=== PATIENT | female | born 1995 | race Caucasian/White ===

== ENCOUNTER 2017-12-14 07:49 | Inpatient (IN) | payer OTHER ==
[~2017-12-14] VITALS: Ht 165.1 cm; Wt 145.5 kg
[~2017-12-14 07:49] MED LIST: ACET-1311 PO; FLVHFA110 INH; MTR600X PO; PRENTAB14 PO
[2017-12-14] MEDS ORDERED: LACTATED RINGER'S 1000ML 1,000 ML IV PRN (08:00)
[2017-12-14] MEDS ORDERED: DINOPROSTONE 10 MG INSERT PV ONE (08:00)
[2017-12-14 08:24] LABS: HEMATOCRIT 35.7 % (37-47); HEMOGLOBIN 11.7 g/dL (12.0-16.0); MEAN CELL VOLUME 83.6 fL (80-100); MEAN CORPUSCULAR HEMOGLOBIN 27.4 pg (25-34); MEAN CORPUSCULAR HGB CONC 32.8 g/dl (32-36); MEAN PLATELET VOLUME 9.8 fL (7.4-10.4); PLATELET COUNT 277 K/uL (130-400); RED CELL DISTRIBUTION WIDTH CV 16.1 % (11.5-14.5); RED CELL DISTRIBUTION WIDTH SD 48.5 fL (36.4-46.3); WHITE BLOOD COUNT 13.55 K/uL (4.8-10.8)
[2017-12-14] MEDS ORDERED: LACTATED RINGER'S 1000ML 500 ML IV PRN ×2 (08:29→15:27)
[2017-12-14] MEDS ORDERED: ONDANSETRON INJ 2 MG/ML 2 ML VIAL IV PRN ×2 (08:30→15:30)
[2017-12-14] MEDS ORDERED: OXYTOCIN 30 UNITS/500ML NSS IV PRN ×2 (08:30→16:30)
[2017-12-14] MEDS ORDERED: CALCIUM CARBONATE 500 MG CHEWABLE PO PRN (08:30)
[2017-12-14 11:27] VITALS: Ht 165.1 cm; Wt 145.5 kg
[2017-12-14] MEDS: LACTATED RINGER'S 1000ML 1,000 ML IV SCH ×2 (12:17→14:00)
[2017-12-14] MEDS ORDERED: EpHEDrine SULFATE INJ 50 MG/ML AMP ONE (13:03)
[2017-12-14] MEDS ORDERED: BUPIVACAINE 0.25% 30 ML VIAL ONE (13:03)
[2017-12-14] MEDS ORDERED: FENTANYL CITRATE INJ 50 MCG/1 ML 2 ML VIAL ONE (13:04)
[2017-12-14] MEDS ORDERED: FENTANYL 2MCG/ML ROPIV 1.25MG/ML 100ML BAG EPI ONE (13:04)
[2017-12-14] MEDS ORDERED: NALOXONE HCL INJ 1 MG in SODIUM CHLORIDE 0.9% 1000ML 1,000 ML IV PRN (15:27)
[2017-12-14] MEDS ORDERED: NALOXONE HCL INJ 0.4 MG/1 ML VIAL/CARP IV PRN (15:30)
[2017-12-14] MEDS ORDERED: DiphenhydrAMINE HCL 50 MG/ML VIAL IV PRN (15:30)
[2017-12-14] MEDS ORDERED: EpHEDrine SULFATE INJ 50 MG/ML AMP IV PRN (15:30)
[2017-12-14] MEDS ORDERED: FENTANYL 2MCG/ML ROPIV 1.25MG/ML 100ML BAG EPI PRN (15:30)
[2017-12-14] MEDS ORDERED: PROMETHAZINE HCL INJ 6.25 MG in SODIUM CHLORIDE 0.9% 50ML 50 ML IV PRN (15:30)
[2017-12-14] MEDS ORDERED: NALBUPHINE HCL INJ 10 MG/ML AMP IV PRN (15:30)
[2017-12-14] MEDS ORDERED: LACTATED RINGER'S 1000ML 1,000 ML IV SCH (16:22)
[2017-12-14] MEDS ORDERED: OXYCODONE/ACETAMINOPHEN 5-325 TAB PO PRN (16:30)
[2017-12-14] MEDS ORDERED: LANOLIN OINT EXT PRN (16:30)
[2017-12-14] MEDS ORDERED: HYDROCORTISONE ACETATE 25 MG SUPP PR PRN (16:30)
[2017-12-14] MEDS ORDERED: BENZOCAINE 20% AER SPR 82.5 GM CAN EXT PRN (16:30)
[2017-12-14] MEDS ORDERED: DIPHTHERIA/TETANUS/PERTUSSIS 0.5 ML SYR/VIAL IM. ONE (16:30)
[2017-12-14] MEDS ORDERED: MEASLES, MUMPS & RUBELLA VIRUS VIAL SQ. ONE (16:30)
[2017-12-14] MEDS ORDERED: SUPERCREAM 0.870 % 15GM JAR EXT PRN (16:30)
[2017-12-14] MEDS ORDERED: CEFAZOLIN 3000MG IV PUSH 22.5 ML IV ONE (17:00)
--- NOTE | 2017-12-14 18:05 | DELIVERY SUMMARY ---
DATE OF OPERATION: 12/14/2017 TIME OF DELIVERY OF BABY: 15:59 p.m. TIME OF DELIVERY OF PLACENTA: 16:07 p.m. OPERATIVE PROCEDURE: Spontaneous vaginal delivery, repair of first degree perineal laceration and curettage at bedside for retained membranes. DESCRIPTION OF PROCEDURE: The patient was found to be fully dilated and desired to push. She pushed only once delivered the head through an intact perineum. Shoulders were delivered with minimal traction. Baby was handed to the mother, where mouth and nose were suctioned. Cord was clamped x2 and cut at 1 minute delay and then cord blood was obtained. It was a 3-vessel cord. Perineum and vagina were checked for lacerations. There was a small first degree perineal laceration, which was repaired with 3-0 Vicryl in a SH needle. Excellent hemostasis was achieved. The rest of the vagina and perineum were intact. The placenta was found to be in the vagina, delivered spontaneously intact and complete. The uterus was explored and found to be having some membranes. Some of those were retrieved manually and then with the help of Boom curette the rest of the membranes were retrieved with gentle curettings. Then the uterine cavity / the endometrium was felt to be empty. Fundus was firm. EBL was 200. Mom and baby tolerated the procedure well. Sponge, lap and instrument counts were correct x2. Baby was a viable male infant. Apgars 8/9, weight is 3620 gr, 8 lb. No complications happened and I was present during whole procedure. The patient will be given cefazolin at the end of the procedure. I attest to the content of the Intraoperative Record and any orders documented therein. Any exceptions are noted below. MTDD
[2017-12-14 19:20] VITALS: BP 106/62; PULSE 82; TEMP 36.5
[2017-12-14] MEDS: DOCUSATE SODIUM 100 MG CAP PO SCH (19:30)
--- NOTE | 2017-12-14 21:23 | Anesthesia Procedure Note ---
Anesthesia Epidural Removal Nt Date & Time Dec 14, 2017 at 21:23 Vital Signs Pain Intensity: 0.0 Vital Signs Past 12 Hours Date Time Temp Pulse Resp B/P (MAP) Pulse Ox O2 Delivery O2 Flow Rate FiO2 12/14/17 19:20 Room Air 12/14/17 19:20 36.5 82 20 106/62 (77) Room Air Notes Mental Status: alert / awake / arousable, participated in evaluation Nausea / Vomiting: adequately controlled Pain: adequately controlled Airway Patency, RR, SpO2: stable & adequate BP & HR: stable & adequate Hydration State: stable & adequate Neuraxial Anesthesia: was administered Anesthetic Complications: no major complications apparent, pt satisfied with anesthetic care Epidural: removed without complications, with tip intact
[2017-12-14 23:45] VITALS: BP 112/70; PULSE 76; TEMP 36.4
[2017-12-15] MEDS: ACETAMINOPHEN 325 MG TAB PO PRN ×3 (00:45→19:50)
[2017-12-15 04:00] VITALS: BP 121/70; PULSE 66; TEMP 36.8
[2017-12-15] MEDS: DOCUSATE SODIUM 100 MG CAP PO SCH ×2 (07:36→19:50)
[2017-12-15] MEDS: PRENATAL VITAMIN TAB PO SCH (07:36)
[2017-12-15] MEDS: FERROUS SULFATE 325 MG TAB PO SCH (07:36)
[2017-12-15 07:45] VITALS: BP 127/83; PULSE 86; TEMP 36.4; O2SAT 97
[2017-12-15 08:14] LABS: HEMATOCRIT 34.6 % (37-47)
--- NOTE | 2017-12-15 08:28 | OB/GYN Progress Note ---
H[employer]ELOPER Progress Note Date of Service Dec 15, 2017. Subjective conversation w/ patient, physical exam Ambulation: ambulating normally Voiding: no voiding problems Passing Gas: Yes Diet Tolerance: Regular Diet Lochia: Moderate Feeding Type: Breast Feeding Review of Systems Constitutional: No fever, No chills, No sweats, No weight loss, No weakness, No fatigue, No problem reported Respiratory: No cough, No sputum, No wheezing, No shortness of breath, No dyspnea on exertion, No dyspnea at rest, No hemoptysis, No problem reported Cardiac: No chest pain, No orthopnea, No PND, No edema, No claudication, No palpitations, No problem reported Breast: No see HPI, No breast lump, No change in shape, No nipple discharge, No breast pain, No problem reported Abdomen: No pain, No nausea, No vomiting, No diarrhea, No constipation, No GI bleeding, No problem reported Female : No see HPI, No dysuria, No urinary frequency, No hematuria, No incontinence, No abnormal vaginal bleeding, No vaginal discharge, No problem reported Objective Vital Signs Date Time Temp Pulse Resp B/P (MAP) Pulse Ox O2 Delivery O2 Flow Rate FiO2 12/15/17 04:00 36.8 66 18 121/70 (87) Room Air 12/14/17 23:45 Room Air 12/14/17 23:45 36.4 76 22 112/70 (84) Room Air 12/14/17 19:20 Room Air 12/14/17 19:20 36.5 82 20 106/62 (77) Room Air Physical Exam General Appearance: WELL-APPEARING, WD/WN Respiratory/Chest: chest non-tender, lungs clear, normal breath sounds Cardiovascular: regular rate, rhythm, no edema, no gallop Abdomen: normal bowel sounds, non tender, soft Fundus: Firm Extremities: normal range of motion, non-tender, normal inspection Laboratory Results Last 24 Hours Test 12/15/17 07:22 Hemoglobin 11.0 g/dL Hematocrit 34.6 % Assessment and Plan Day Number: 1 Continue Routine Care: VD day #1 Pt doing well anticipate disch tomorrow
[2017-12-15 11:40] VITALS: BP 112/77; PULSE 64; TEMP 36.9; O2SAT 97
[2017-12-15] MEDS: IBUPROFEN 600 MG TAB PO PRN (12:35)
[2017-12-15 16:05] VITALS: BP 109/65; PULSE 75; TEMP 36.4
[2017-12-15] MEDS ORDERED: BISACODYL 5 MG TABEC PO SCH (20:00)
[2017-12-15 23:30] VITALS: BP 114/72; PULSE 76; TEMP 37
[2017-12-16] MEDS: IBUPROFEN 600 MG TAB PO PRN ×2 (04:29→10:53)
[2017-12-16 06:35] LABS: HEMATOCRIT 33.9 % (37-47); HEMOGLOBIN 11.1 g/dL (12.0-16.0); MEAN CELL VOLUME 84.3 fL (80-100); MEAN CORPUSCULAR HEMOGLOBIN 27.6 pg (25-34); MEAN CORPUSCULAR HGB CONC 32.7 g/dl (32-36); MEAN PLATELET VOLUME 10.2 fL (7.4-10.4); PLATELET COUNT 269 K/uL (130-400); RED CELL DISTRIBUTION WIDTH CV 16.1 % (11.5-14.5); RED CELL DISTRIBUTION WIDTH SD 49.4 fL (36.4-46.3); WHITE BLOOD COUNT 14.03 K/uL (4.8-10.8)
[2017-12-16] MEDS ORDERED: BISACODYL 10 MG SUPP PR PRN (07:00)
[2017-12-16 08:00] VITALS: BP 141/80; PULSE 67; TEMP 36.3
[2017-12-16] MEDS: FERROUS SULFATE 325 MG TAB PO SCH (08:21)
[2017-12-16] MEDS: PRENATAL VITAMIN TAB PO SCH (08:21)
[2017-12-16] MEDS: DOCUSATE SODIUM 100 MG CAP PO SCH (08:26)
[2017-12-16] MEDS ORDERED: MTR600X PO (09:33)
--- NOTE | 2017-12-16 09:34 | Discharge Instructions ---
Discharge Instructions Date of Service Dec 16, 2017. Admission Reason for Admission: Induction Discharge Discharge Diagnosis / Problem: term delivered Discharge Goals Goal(s): Routine recovery after delivery Activity Recommendations Activity Limitations: as noted below Lifting Limitations: no more than 10 pounds Exercise/Sports Limitations: gradually increase as tolerated May Resume Sexual Activity: after follow-up appointment Shower/Bathe: no limitations Driving or Machine Use: resume 3 days after discharge . Instructions / Follow-Up Instructions / Follow-Up ACTIVITY RECOMMENDATIONS: * Gradual return to full activity over the next 2-3 weeks. * No lifting - nothing heavier than baby over the next 2-3 weeks. * Do not engage in vigorous exercise, sexual activity or sports until cleared by your physician. * Do not drive or operate any motorized equipment until cleared by your physician. * You may shower/bathe daily. BREAST CARE: If you are not breast feeding: * Wear a supportive bra 24 hours a day for one to two weeks. * Avoid stimulating your breasts and nipples as much as possible during the first few weeks after delivery. * When taking a shower, have the warm water hit your back, not breasts. * When your breasts feel full, apply ice packs. Usually three to four times a day helps ease the discomfort. * Take a mild pain medication (Tylenol/Motrin) when you are uncomfortable. If breast feeding: * Use breast milk to lubricate nipples. Lansinoh cream may be used for sore nipples. You do not need to remove cream prior to breast feeding. If using a different brand of cream, check the label for directions regarding removal of cream prior to nursing. * Wear a supportive bra. * If having problems with breasts or breast feeding, call a client service consultant or your health care provider. EPISIOTOMY CARE: After delivery, if you have an episiotomy (stitches), the following steps will ease discomfort and aid healing. * For the first 24 hours after delivery, place ice packs next to your episiotomy to help reduce swelling. * After the first 24 hour-period, sitz baths, either portable or in the tub, are suggested. A shower with a shower arm sprayed over the episiotomy may be comforting. * Nila care should be done after each voiding and bowel movement. Squirt warm water from a plastic bottle over the perineum (region of the body between the anus and urinary opening) and pat dry. * Use Dermoplast to ease discomfort. Shake container. [place] directly over the episiotomy. * Place a Tucks on a clean sanitary pad next to your episiotomy. OVER THE COUNTER MEDICATION: * For discomfort or pain, you may use Acetaminophen (Tylenol), Ibuprofen (Advil ), or Naproxen (Aleve) following the package directions. * For constipation you may use Colace following the package directions. SPECIAL CARE INSTRUCTIONS: When you are discharged from the hospital, it is important for you to follow the instructions listed below: * During the first week at home, you should be able to care for yourself and your baby. In addition, the usual light household activities are encouraged. * Limit your activities to the way you feel. Do not try to clean the house or move furniture. Be sensible. * If you actively engage in sports and have done so up until the time of your delivery, you may resume these activities as soon as you feel able. This may take up to one month or even longer. Use good judgment. * Continue to take your vitamins for at least six weeks after the of your baby. * Your diet need not be limited unless you were on a special diet before your delivery. Breast-feeding mothers need around 2500 calories per day and at least 64-80 ounces of fluid per day (8 to 10 glasses). * You should eat foods from the four major food groups. Crash diets or fad diets are to be avoided. Eating lean meats, fresh fruits and vegetables, low-fat dairy products, high fiber foods and a regular exercise program, will help you get back to your pre- weight without putting your health at risk. * Constipation is sometimes a problem after delivery. Take a mild laxative as needed. If breast feeding, Milk of Magnesia is acceptable to use. You may use a suppository or Fleets enema if no episiotomy. * A daily shower or tub bath is suggested. Be sure to thoroughly and gently dry the perineum. * A bloody vaginal discharge will usually continue until around four weeks post . A small amount of bleeding may continue for as long as six weeks. Vaginal discharge changes from the bright red bleeding after delivery to pink then brownish and finally yellowish-pink before becoming white and disappearing. * Bleeding may increase with activity. Your first period may come in 4-8 weeks. If you are breast feeding, your period may be delayed even longer. * [place]ell (sex) can begin whenever both you and your partner feel comfortable and do not have any form of genital infection. It is recommended that you wait until after your return appointment and discuss with your physician. If you have questions, please talk to your health care practitioner. A condom should be used to prevent infection and . * Foreplay, gentle intercourse and lubrication is very important the first several times to prevent pain. A water-based lubricant such as K-Y jelly or Astroglide may be used. * Tampons may be used six weeks after delivery. * Douching should be avoided for 6 weeks after delivery. * If you have RH negative blood and your baby is RH positive, you will receive RHOGAM by injection prior to discharge. The nurse will give you a card to keep with you that has the date and place that you received RHOGAM after delivery. * During your care, you had a Rubella screen done to check for the presence of rubella antibodies in your blood. If your test was negative, you will receive a Rubella vaccine prior to discharge. This vaccine may cause a fever, soreness at the injection site and flu-like symptoms. If these symptoms persist, notify your health care practitioner. is not advised for three months after a Rubella vaccine. There is a higher chance of having a baby with defects if conceived within three months of getting the vaccine. * If you were discharged 24 hours from delivery or before 48 hours: Visiting nurses will come to your home 48 hours after discharge to assess you and your baby. The visiting nurse will meet with you while you are in the hospital to arrange a time and get directions to your home. * Verbalizes understanding of car seat law as reviewed with patient nursing. * Car Seat hand-out given and reviewed with patient by nursing. * Shaken baby information reviewed with patient by nursing. Call you doctor if: * Heavy bleeding (saturating several pads an hour) or passing clots the size of your fist. * A fever >101 degrees F (38.3 degrees C) on two occasions four hours apart and/or chills. * Unusual pain in the pelvic or vaginal areas. * "Baby Blues" lasting longer than two weeks. If you have any questions or concerns, call your health care practitioner at . FOLLOW-UP VISIT: * Please call the office at to schedule a 6 week examination. It is important you keep this appointment. * It is important for you to make arrangements for either yearly or twice yearly check-ups thereafter. Current Hospital Diet Patient's current hospital diet: Regular OB Diet Discharge Diet Recommended Diet: Regular OB Diet Pending Studies Studies pending at discharge: no Medical Emergencies . Who to Call and When: Medical Emergencies: If at any time you feel your situation is an emergency, please call 911 immediately. . Non-Emergent Contact Non-Emergency issues call your: Primary Care Provider . . "Provider Documentation" section prepared by Shilo Simpson. . VTE Core Measure Inpt VTE Proph given/why not?: Treatment not indicated
--- NOTE | 2017-12-16 09:48 | OB/GYN Progress Note ---
KAYAK MAKER Progress Note Date of Service Dec 16, 2017. Subjective conversation w/ patient, physical exam Ambulation: ambulating normally Voiding: no voiding problems Passing Gas: Yes Diet Tolerance: Regular Diet Lochia: Small Feeding Type: Breast Feeding Objective Vital Signs Date Time Temp Pulse Resp B/P (MAP) Pulse Ox O2 Delivery O2 Flow Rate FiO2 12/15/17 23:30 Room Air 12/15/17 23:30 37.0 76 16 114/72 (86) Room Air 12/15/17 16:05 36.4 75 16 109/65 (80) Room Air 12/15/17 16:05 Room Air 12/15/17 11:40 36.9 64 16 112/77 (89) 97 Room Air Physical Exam General Appearance: WELL-APPEARING, NO APPARENT DISTRESS Abdomen: non tender, soft Fundus: Firm Extremities: non-tender, normal inspection, no pedal edema, no calf tenderness Laboratory Results Last 24 Hours Test 12/16/17 06:16 White Blood Count 14.03 K/uL Red Blood Count 4.02 M/uL Hemoglobin 11.1 g/dL Hematocrit 33.9 % Mean Corpuscular Volume 84.3 fL Mean Corpuscular Hemoglobin 27.6 pg Mean Corpuscular Hemoglobin Concent 32.7 g/dl RDW Standard Deviation 49.4 fL RDW Coefficient of Variation 16.1 % Platelet Count 269 K/uL Mean Platelet Volume 10.2 fL Assessment and Plan Post- Day Number: 2 Continue Routine Care: discharged home
[2017-12-16 11:13] VITALS: BP_DIAS 80; PULSE 67; TEMP 36.3
== END 2017-12-16 12:28 | disposition home or self-care (01) | DRG 767 ==
LOC: C.LD 07:49 → C.OBG 19:03
PROVIDERS: ADMIT Obstetrics & Gynecology; ATTEND Obstetrics & Gynecology
PROC: 10E0XZZ Delivery of Products of Conception, External Approach (ICD-10-PCS; principal; 2017-12-14)
PROC: 0HQ9XZZ Repair Perineum Skin, External Approach (ICD-10-PCS; principal; 2017-12-14)
PROC: 10D17Z9 Manual Extraction of Products of Conception, Retained, Via Natural or Artificial Opening (ICD-10-PCS; principal; 2017-12-14)
DX: O73.1 Retained portions of placenta and membranes, without hemorrhage (principal); Z37.0 Single live birth; O70.0 First degree perineal laceration during delivery; Z3A.39 39 weeks gestation of pregnancy

== ENCOUNTER 2019-12-09 07:34 | Inpatient (IN) ==
[2019-12-09] MEDS ORDERED: OXYTOCIN 30 UNITS/500 ML BAG IV PRN ×3 (10:03→18:44)
--- NOTE | 2019-12-09 10:17 | History & Physical Report ---
Date of Service December 09, 2019 Assessment & Plan (1) Elective induction of labor planned: 24 yo at 39.4 wks, IOL at term for class 3 obesity VSS Afebrile GBS negative FHR reassuring Cervix favorable Plan to admit, monitor, Oxytocin for IOL All questions were answered (2) Obesity affecting in third trimester, antepartum: (3) Tobacco smoking affecting : History of Present Illness Primary Care Provider: Moises Rayo MD Patient is a 24 yo at 39.4 wks who is being admitted for IOL at term for Class 3 Obesity No complaints No ctxs/ LOF/VB +FM's No PEDRAZA/ change in vision/ N&V Her has been uncomplicated except Class 3 obesity and smoker ( 4 cig / day) desires Nicotine patch after delivery Denies any other medical problems growth US was normal 2 weeks ago GBS negative Allergies Allergy/AdvReac Type Severity Reaction Status Date / Time clindamycin Allergy Mild RASH Verified 12/09/19 07:46 Home Medications Home Medications Medication Instructions Recorded Confirmed Type PNV cmb#95-ferrous fumarate-FA 1 tab PO DAILY #0 11/23/13 12/09/19 History [] calcium carbonate [Tums] 200 mg PO QID PRN 12/09/19 12/09/19 History Patient History Medical History Bipolar 1 disorder Class 3 severe obesity in adult Sleep disorder Surgical History History of tonsillectomy Social History Preferred Language: [place] Communication Ability: Effective Beliefs That Will Affect Care: None marital status: Single Current Living Situation: Family and Significant Other Other Information That Helps Us Care for You: No Feels Safe at Home: Yes Safety Concerns: Feels Safe At This Time Smoking Status: Current every day smoker Tobacco Type: cigarettes ; Cigarettes Per Day: 5 ; Do You Dip or Chew Tobacco: No ; Second Hand Exposure: Yes ; Tobacco Cessation Education Requested by Patient: No Hx Alcohol Use: No Hx Substance Use: No OB History 3 FT 's, uncomplicated PROJECT LEAD History Denies h/o any STD's, no HSV Review of Systems All systems reviewed & are unremarkable except as noted in HPI & below Physical Exam Constitutional: WD/WN, vitals as above well developed and well nourished Comfortable, NAD Gastrointestinal (Abdomen): Abd: soft, NT, gravid Genitourinary: normal external appearance VE: 3-4 cm/ 50%/ -3, vertex Results & Data Vital Signs (Past 12 Hours) Vital Signs Pulse BP 12/09/19 07:43 83 133/63 Monitoring External Monitor NST : 130's, reactive Tocodynamometer No ctxs
[2019-12-09 10:26] LABS: Hematocrit (blood only) 36.1 % (37-47); Hemoglobin 11.7 g/dL (12.0-16.0); Mean Corpuscular Hemoglobin 27.8 pg (25-34); Mean Corpuscular Volume 85.7 fL (80-100); Platelet Count 266 K/uL (130-400); RDW Coefficient of Variation 15.7 % (11.5-14.5); RDW Standard Deviation 48.9 fL (36.4-46.3); Red Blood Count 4.21 M/uL (4.2-5.4); White Blood Count 11.41 K/uL (4.8-10.8)
[2019-12-09 10:32] LABS: Mean Corpuscular Hgb Conc 32.4 g/dL (32-36)
[2019-12-09] MEDS: LACTATED RINGER'S 1,000 ML IV PRN ×3 (10:33→17:32)
[2019-12-09 11:23] LABS: Alanine Aminotransferase 13 U/L (12-78); Albumin Level 2.6 gm/dl (3.4-5.0); Aspartate Aminotransferase 6 U/L (15-37); BUN Creatinine Ratio 20.4 (10-20); Blood Urea Nitrogen 10 mg/dl (7-18); Calcium 8.8 mg/dl (8.5-10.1); Carbon Dioxide 25 mmol/L (21-32); Chloride 107 mmol/L (98-107); Creatinine Clr Calc Pharmacy 261.6 ml/min; Est GFR (African American) > 150.0; Est GFR (Non-African American) 138.3; Glucose 73 mg/dl (70-99); Potassium 3.8 mmol/L (3.5-5.1); Sodium 139 mmol/L (136-145)
[2019-12-09 11:26] LABS: Albumin Globulin Ratio 0.6 (0.9-2); Alkaline Phosphatase 110 U/L (45-117); Bilirubin,Total 0.2 mg/dl (0.2-1); Globulin 4.5 gm/dl (2.5-4.0); Total Protein 7.1 gm/dl (6.4-8.2)
--- NOTE | 2019-12-09 14:49 | Obstetrical Progress Note ---
Date of Service December 09, 2019 Subjective Patient is reevaluated Feels ctxs and desires epidural for pain VE; 4/ 60%/ -3 FHR categ I [place]: ctxs q2-3 min, mild amplitude per external toco Plan epidural for pain, continue with pitocin and then AROM when able Results & Data Vital Signs (Past 12 Hours) Vital Signs Temp Pulse Resp BP 12/09/19 13:53 18 12/09/19 13:42 61 123/55 L 12/09/19 13:08 20 12/09/19 12:38 67 120/58 L 12/09/19 11:35 38.6 C H 70 18 121/56 L 12/09/19 10:36 70 20 118/57 L 12/09/19 07:43 83 133/63
[2019-12-09] MEDS ORDERED: BUPIVACAINE 0.25% 30 ML VIAL ONE (14:53)
[2019-12-09] MEDS ORDERED: ePHEDrine sulfate 50 MG/ML AMP ONE (14:53)
[2019-12-09] MEDS ORDERED: fentaNYL citrate 100 MCG/2 ML VIAL ONE (14:53)
[2019-12-09] MEDS ORDERED: fentaNYL 2MCG/ML ROPIV 1.25MG/ML 100 ML BAG EPI ONE (14:54)
[2019-12-09] MEDS ORDERED: NALBUPHINE HCL INJ 10 MG/ML AMP IV PRN (15:07)
[2019-12-09] MEDS ORDERED: fentaNYL 2MCG/ML ROPIV 1.25MG/ML 100 ML BAG EPI PRN (15:07)
[2019-12-09] MEDS ORDERED: NALOXONE HCL 1 MG in SODIUM CHLORIDE 0.9% 1000ML 1,000 ML IV PRN (15:07)
[2019-12-09] MEDS ORDERED: ONDANSETRON INJ 2 MG/ML 2 ML VIAL IV PRN (15:07)
[2019-12-09] MEDS ORDERED: ePHEDrine sulfate 50 MG/ML AMP IV PRN (15:07)
[2019-12-09] MEDS ORDERED: DiphenhydrAMINE HCL 50 MG/ML VIAL IV PRN (15:07)
[2019-12-09] MEDS ORDERED: NALOXONE HCL 0.4 MG/1 ML VIAL/CARP IV PRN (15:07)
--- NOTE | 2019-12-09 15:15 | Anesthesiology Consultation ---
Date of Service December 09, 2019 Assessment & Plan Chart Review Chart Review: Patient NOT seen in Pre Admission Testing and Acceptable Risk for Labor Epidural Consults Requested none ASA ASA3 Proposed Anesthesia Anesthesia Type: Labor Epidural and CSE Risk / Benefits Reviewed With: PT / POA / Parent / Guardian, Accepts Plan and Informed Consent Obtained History Height/Weight Height: 5 ft 4 in Weight: 142.428 kg Allergies Allergy/AdvReac Type Severity Reaction Status Date / Time clindamycin Allergy Mild RASH Verified 12/09/19 07:46 Medications Home Medications Medication Instructions Recorded Confirmed Last Taken PNV cmb#95-ferrous fumarate-FA 1 tab PO DAILY #0 11/23/13 12/09/19 Unknown [] calcium carbonate [Tums] 200 mg PO QID PRN 12/09/19 12/09/19 12/09/19 02:00 Active Medications Generic Name Dose Route Start Last Admin Trade Name Freq PRN Reason Stop Dose Admin Lactated Ringer's 1,000 mls @ 150 mls/hr 12/09/19 10:03 12/09/19 15:10 Lr IV 12/11/19 10:02 999 mls/hr .[id number] PRN Administration L&D Protocol Protocol Oxytocin 30 units in 500 mls @ 16 mls/hr 12/09/19 10:08 12/09/19 14:45 Pitocin IV 12/11/19 10:07 0.96 units/hr .Q24H PRN 16 mls/hr Labor Induction/Augmentation Titration Protocol 0.96 UNITS/HR NPO Date Last Intake of Fluids: 12/09/19 Time Last Intake of Fluids: 14:00 Date Last Intake of Solids: 12/09/19 Time Last Intake of Solids: 06:00 Past Medical History Medical History Bipolar 1 disorder Class 3 severe obesity in adult Sleep disorder Smoker Exercise / Class Metabolic Activity II 4-5 Yardwork/Stairs/Walk up hill Past Surgical History Surgical History History of tonsillectomy Past Anesthesia History No Hx of Anesthesia Complications and No Family Hx of Anesthesia Complications History of PONV No Hx of PONV and No Hx of Motion Sickness Social History Smoking Status: Current every day smoker tobacco type: cigarettes Smoking cigarettes per day: 5 Do You Dip or Chew Tobacco: No Hx Alcohol Use: No Hx Substance Use: No Review of Systems no chest pain or sob Physical Exam Vital Signs Last Vital Signs Temp 36.7 C 12/09/19 14:50 Pulse 72 12/09/19 15:13 Resp 20 12/09/19 14:50 BP 117/60 12/09/19 14:50 Pulse Ox 84 L 12/09/19 15:13 Constitutional + morbidly obese ENMT Mouth: no TMJ abnormality Thyromental Distance: > or= 3.5 Finger Breadths Mallampati Class: III Neck normal visual inspection and + thick neck Respiratory normal respiratory effort Auscultation: lungs clear to auscultation bilaterally Cardiovascular Rate/Rhythm: regular rate and regular rhythm Musculoskeletal Spine: normal cervical ROM Neurologic moves all extremities Psychiatric Orientation: alert and oriented x 3 Testing Laboratory Results 12/09/19 10:17 12/09/19 10:17 Blood Type A Positive 12/09/19 10:17 Antibody Screen NEGATIVE 12/09/19 10:17
--- NOTE | 2019-12-09 17:11 | Obstetrical Progress Note ---
Date of Service December 09, 2019 Subjective Patient is reevaluated Comfortable now, received epidural for pain VE; 5/ 60%/ -2, AROM'ed, abundant clear fluid FHR categ I [place]: ctxs q2-3 min, mild amplitude per external toco Plan continue with pitocin and monitor Results & Data Vital Signs (Past 12 Hours) Vital Signs Temp Pulse Resp BP Pulse Ox 12/09/19 17:00 64 103/54 L 12/09/19 16:48 61 80 L 12/09/19 16:45 71 22 103/51 L 12/09/19 16:30 55 L 22 106/53 L 12/09/19 16:24 61 90 12/09/19 16:23 61 98 12/09/19 16:18 68 97 12/09/19 16:17 61 91 12/09/19 16:13 74 22 102/50 L 100 12/09/19 16:11 65 90 12/09/19 16:08 64 105/56 L 93 12/09/19 16:04 73 90 12/09/19 16:03 70 105/53 L 98 12/09/19 15:59 76 92 12/09/19 15:58 69 108/52 L 98 12/09/19 15:53 68 24 107/53 L 96 12/09/19 15:48 67 24 106/55 L 100 12/09/19 15:43 68 99 12/09/19 15:42 67 22 106/59 L 12/09/19 15:40 68 107/56 L 12/09/19 15:38 64 103/54 L 99 12/09/19 15:36 80 99/50 L 12/09/19 15:34 69 95/46 L 12/09/19 15:33 69 100 12/09/19 15:28 73 100 12/09/19 15:25 67 90 12/09/19 15:23 69 95 12/09/19 15:18 70 97 12/09/19 15:13 72 84 L 12/09/19 15:08 67 98 12/09/19 14:50 36.7 C 67 20 117/60 12/09/19 13:53 18 12/09/19 13:42 61 123/55 L 12/09/19 13:08 20 12/09/19 12:38 67 120/58 L 12/09/19 11:35 38.6 C H 70 18 121/56 L 12/09/19 10:36 70 20 118/57 L 12/09/19 07:43 83 133/63
--- NOTE | 2019-12-09 18:42 | Anesthesia Procedure Note ---
Date of Service December 09, 2019 Anesthesia Post Epidural Note Vital Signs Vital Signs: Temp Pulse Resp BP Pulse Ox 36.8 C 85 20 135/73 83 L 12/09/19 17:19 12/09/19 18:40 12/09/19 17:19 12/09/19 18:40 12/09/19 18:34 Notes Mental Status: alert / awake / arousable and participated in evaluation Nausea / Vomiting: adequately controlled Pain: adequately controlled Airway Patency, RR, SpO2: stable & adequate BP & HR: stable & adequate Hydration State: stable & adequate Neuraxial Anesthesia: was administered and sensory block is resolving Anesthetic Complications: no major complications apparent and Pt Satisfied with anesthetic care Epidural: Removed without complications and With tip intact
[2019-12-09] MEDS ORDERED: MEASLES, MUMPS & RUBELLA VIRUS VIAL SQ ONE (18:44)
[2019-12-09] MEDS ORDERED: BENZOCAINE 20% AER SPR 82.5 GM CAN EXT PRN (18:44)
[2019-12-09] MEDS ORDERED: DIPHTHERIA/TETANUS/PERTUSSIS 0.5 ML SYR/VIAL IM ONE (18:44)
[2019-12-09] MEDS ORDERED: SUPERCREAM 0.870% 15 GM JAR EXT PRN (18:44)
[2019-12-09] MEDS ORDERED: HYDROCORTISONE ACETATE 25 MG SUPP PR PRN (18:44)
[2019-12-09] MEDS ORDERED: ACETAMINOPHEN 325 MG TAB PO PRN (18:44)
[2019-12-09] MEDS ORDERED: METHYLERGONOVINE MALEATE 0.2 MG/ML AMP IM ONE (18:44)
[2019-12-09] MEDS ORDERED: METHYLERGONOVINE MALEATE 0.2 MG/ML AMP ONE (19:07)
--- NOTE | 2019-12-09 21:16 | Delivery Summary ---
DATE OF OPERATION: 12/09/2019 DATE OF DELIVERY: 12/09/2019. TIME OF DELIVERY OF BABY: 18:23 p.m. DETAILS OF DELIVERY: The patient was found to be fully dilated and delivered baby precipitously. Then I was called. When I was in the room baby was on the mom vigorously moving and crying. Cord was clamped x2 and cut. It was 3 vessels cord. Cord blood was obtained and then vagina and perineum were checked for lacerations. They were intact. No lacerations were found and then placenta was found to be in the vagina, delivered spontaneously as intact and complete. Uterus was explored, found to be empty. Fundus was firm. EBL was 100 ml. No complications happened. Mom and baby tolerated the procedure well. At the end of the procedure, sponge and instrument was correct x2. Baby was a viable female , Apgars 8/9, weight is 3245 gr. I attest to the content of the Intraoperative Record and any orders documented therein. Any exceptions are noted below. MTDD
[2019-12-09] MEDS: DOCUSATE SODIUM 100 MG CAP PO SCH (21:53)
[2019-12-10] MEDS: IBUPROFEN 600 MG TAB PO PRN ×3 (03:52→20:33)
[2019-12-10 07:16] LABS: Hematocrit (blood only) 32.7 % (37-47); Hemoglobin 10.5 g/dL (12.0-16.0); Mean Corpuscular Hemoglobin 27.5 pg (25-34); Mean Corpuscular Hgb Conc 32.1 g/dL (32-36); Mean Corpuscular Volume 85.6 fL (80-100); Mean Platelet Volume 10.2 fL (7.4-10.4); Platelet Count 242 K/uL (130-400); RDW Coefficient of Variation 15.7 % (11.5-14.5); RDW Standard Deviation 48.5 fL (36.4-46.3); Red Blood Count 3.82 M/uL (4.2-5.4); White Blood Count 11.99 K/uL (4.8-10.8)
[2019-12-10] MEDS: FERROUS SULFATE 325 MG TAB PO SCH (08:54)
[2019-12-10] MEDS: DOCUSATE SODIUM 100 MG CAP PO SCH ×2 (08:54→20:33)
[2019-12-10] MEDS: PRENATAL VITAMIN 1 TAB PO SCH (08:54)
[2019-12-10] MEDS: NICOTINE 7 MG/24 HR TDSY TD SCH (09:16)
--- NOTE | 2019-12-10 11:35 | Obstetrical Progress Note ---
Date of Service December 10, 2019 Assessment & Plan (1) normal course: PPD #1 pt doing well wishes to be disch how this PM Subjective Ambulation: ambulating normally Voiding: no voiding problems Passing Gas:: Yes Diet Tolerance:: regular diet Lochia:: Small Feeding Type:: breast feeding Review of Systems All systems reviewed & are unremarkable except as noted in HPI & below Physical Exam Constitutional WD/WN, vitals as above well developed and well nourished Eyes PERRL, conjunctivae normal, anicteric sclerae Neck trachea midline, no thyromegaly Respiratory normal respiratory effort, lungs clear to auscultation Auscultation: no crackles, no rales and no wheezes Cardiovascular RRR, no murmur, no edema Gastrointestinal (Abdomen) normal bowel sounds, soft, nontender, no hepatosplenomegaly Uterus is below umbilicus Musculoskeletal no cyanosis or clubbing, extremities motor strength 5/5 Skin no rashes, warm and dry Neurologic patellar DTR's 2+ bilat, sensation intact Psychiatric A+Ox3, euthymic affect Genitourinary normal external appearance Results & Data Vital Signs (Past 12 Hours) Vital Signs Temp Pulse Resp BP Pulse Ox 12/10/19 08:50 36.6 C 86 16 104/69 12/10/19 04:30 36.7 C 69 18 102/61 97 12/09/19 23:45 36.4 C L 88 18 94/61 L 96
[2019-12-10] MEDS ORDERED: bisacodyL 5 MG TABEC PO SCH (20:00)
[2019-12-11 06:58] LABS: Hematocrit (blood only) 33.7 % (37-47); Hemoglobin 10.7 g/dL (12.0-16.0)
[2019-12-11] MEDS: DOCUSATE SODIUM 100 MG CAP PO SCH (08:11)
[2019-12-11] MEDS: NICOTINE 7 MG/24 HR TDSY TD SCH (08:12)
[2019-12-11] MEDS: PRENATAL VITAMIN 1 TAB PO SCH (08:12)
[2019-12-11] MEDS: FERROUS SULFATE 325 MG TAB PO SCH (08:13)
[2019-12-11] MEDS ORDERED: bisacodyL 10 MG SUPP PR PRN (09:00)
--- NOTE | 2019-12-11 10:05 | Obstetrical Progress Note ---
Date of Service December 11, 2019 Assessment & Plan (1) normal course: PPD #2 pt doing well disch home with instrcutions Results & Data Vital Signs (Past 12 Hours) Vital Signs Temp Pulse Resp BP 12/11/19 07:40 36.9 C 87 16 121/78 12/11/19 00:50 36.6 C 69 16 108/70
== END 2019-12-11 13:56 | disposition home or self-care (01) | DRG 807 ==
LOC: 4S1 07:34 → 4S2 21:56